=== PATIENT | male | born 1980 | race Caucasian/White ===

== ENCOUNTER 2020-05-26 01:18 | Emergency (ER) | payer OTHER ==
[~2020-05-26] VITALS: Ht 175.3 cm; Wt 112.2 kg
[2020-05-26 01:19] VITALS: BP 155/87
[2020-05-26] MEDS ORDERED: ADDE25CA PO (01:28)
[2020-05-26] MEDS ORDERED: OXYC1TAB23 PO (01:28)
[2020-05-26] MEDS ORDERED: TRAM50TA2 PO (01:28)
[2020-05-26] MEDS ORDERED: LEXA1TAB PO (01:28)
[2020-05-26] MEDS ORDERED: D31000TA2 PO (01:28)
[2020-05-26] MEDS ORDERED: AUGMENTIN 875 MG TAB PO ONE (02:00)
[2020-05-26] MEDS ORDERED: AUGM875T28 PO (02:02)
== END 2020-05-26 02:20 | disposition home or self-care (01) ==
LOC: M ED 01:18
DX: K04.7 Periapical abscess without sinus (principal); Z98.890 Other specified postprocedural states

== ENCOUNTER 2020-05-28 22:14 | Emergency (ER) | payer OTHER ==
[~2020-05-28] VITALS: Ht 175.3 cm; Wt 111.0 kg
[~2020-05-28 22:14] MED LIST: ADDE25CA PO; AUGM875T28 PO; D31000TA2 PO; LEXA1TAB PO; OXYC1TAB23 PO; TRAM50TA2 PO
[2020-05-28] MEDS ORDERED: KETOROLAC 30 MG/ML 1ML VIAL IV ONE (23:45)
[2020-05-29] MEDS ORDERED: ISOVUE-370 76% 100ML VIAL As Ordered ONE (00:09)
[2020-05-29 00:12] VITALS: BP 130/69
[2020-05-29 00:20] LABS: BASO # 0.1 10^3/uL (0.0-0.2); EOS # 0.3 10^3/uL (0.0-0.5); EOS % 4.8 % (0.0-3.0); HEMOGLOBIN 14.2 g/dl (13.5-17.5); LYMPH # 2.3 10^3/uL (1.5-5.0); LYMPH % 37.6 % (24.0-44.0); MEAN CORPUSCULAR HEMOGLOBIN 29.4 pg (27.0-33.0); MONO # 0.6 10^3/uL (0.0-0.8); MONO % 9.9 % (0.0-5.0); NEUTROPHILS # 2.7 10^3/uL (1.5-8.5); NEUTROPHILS % 45.9 % (36.0-66.0); PLATELET COUNT, AUTOMATED 211 10^3/uL (150-450); RED BLOOD COUNT 4.83 10^6/uL (4.30-6.10)
--- NOTE | 2020-05-29 00:35 | REPVR ---
PROCEDURE INFORMATION: Exam: CT Maxillofacial With Contrast Exam date and time: 05/28/2020 12:17 AM Age: 40 years old Clinical indication: Jaw pain; Additional info: Severe R upper jaw pain radiating to eye and ear TECHNIQUE: Imaging protocol: Computed tomography images of the face with intravenous contrast. Radiation optimization: All CT scans at this facility use at least one of these dose optimization techniques: automated exposure control; mA and/or kV adjustment per patient size (includes targeted exams where dose is matched to clinical indication); or iterative reconstruction. Contrast material: ISOVUE 370; Contrast volume: 75 ml; Contrast route: INTRAVENOUS (IV); COMPARISON: No relevant prior studies available. FINDINGS: Orbits: Orbits are normal. Globes are unremarkable. Bones/joints: No acute fracture identified. Destructive osseous lesions are seen. Sinuses: There is sinus mucosal disease primarily involving the right maxillary antrum. A mucous retention cyst is seen in the floor the right maxillary antrum. No air-fluid levels. Soft tissues: No soft tissue abscess is identified. Dental: There is a small periapical lucency associated with the 2nd maxillary molar tooth on the right. This is best seen on series 205, image 31. IMPRESSION: 1. Small periapical lucency associated with the 2nd maxillary molar tooth on the right. 2. Sinus disease, most prominent in the right maxillary antrum. No air-fluid levels. Electronically signed by: Ailyn Key On 05/29/2020 00:35:36 AM
[2020-05-29 00:40] LABS: ERYTHROCYTE SEDIMENTATION RATE 21 mm/hr (0-15)
[2020-05-29] MEDS ORDERED: OXYCODONE/APAP 5MG/325MG(BULK FOR ED) 1 TABLET PO ONE (01:15)
== END 2020-05-29 01:20 | disposition home or self-care (01) ==
LOC: M ED 22:14
DX: K04.7 Periapical abscess without sinus (principal); J34.9 Unspecified disorder of nose and nasal sinuses; J30.89 Other allergic rhinitis; Z79.899 Other long term (current) drug therapy; Z91.040 Latex allergy status
CPT/HCPCS: 70487; 80047; 85025; 85652; 86140; 96374; 99283; J1885; Q9967

== ENCOUNTER → 2020-12-15 | Outpatient (REF) | payer OTHER ==
[2020-12-15 13:20] LABS: SEMEN APPEARANCE OPAQUE (OPAQUE); SEMEN VISCOSITY LIQUID (LIQUID); SEMEN VOLUME 2.4 ml (2.0-5.0)
[2020-12-15 13:21] LABS: SPERM CONCENTRATION 38.6 M/ml (>=15.0); WBC CONCENTRATION >1 M/ml (<=1 M/ml)
== END ==
LOC: M LAB REF 13:14
PROVIDERS: ATTEND Nurse Practitioner
DX: Z31.41 Encounter for fertility testing (principal)

== ENCOUNTER → 2021-02-23 | Outpatient (CLI) | payer OTHER ==
--- NOTE | 2021-02-23 14:37 | REPPI ---
INDICATION: DIAGNOSTICS NEEDED FOR HISTORY AND PHYSICAL EVALUATION COMPARISON: None. TECHNIQUE: PA and lateral. FINDINGS: The mediastinum and cardiac silhouette are normal. The lung rubio are clear and without acute consolidation, effusion, or pneumothorax. The skeletal structures are intact and normal. IMPRESSION: No acute cardiopulmonary process. <Electronically signed by Jacques Sotelo > 02/23/21 [id number]
--- NOTE | 2021-02-23 14:37 | REPPI ---
INDICATION: DIAGNOSTICS NEEDED FOR HISTORY AND PHYSICAL EVALUATION COMPARISON: None. TECHNIQUE: Espitia and bilateral lateral views of the nasal bones. FINDINGS: Nasal septum is midline. Nasal bones appear intact without acute fracture or dislocation. Overlying soft tissues are grossly unremarkable. IMPRESSION: No acute nasal bone fracture identified. <Electronically signed by Jacques Sotelo > 02/23/21 [id number]
== END ==
LOC: M PLAIMG 13:33
DX: Z00.00 Encounter for general adult medical examination without abnormal findings (principal)